=== PATIENT | female | born 2000 | race Caucasian/White ===

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

== ENCOUNTER → 2018-05-14 16:40 | Outpatient (CLI) | payer MEDICAID, SELFPAY ==
[2018-05-14 14:02] VITALS: BMI 19.1
[2018-05-14 17:55] LABS: International Normalized Ratio 1.1; Prothrombin Time (Protime)PT. 13.9 SECONDS (11.7-14.9)
[2018-05-14 17:56] LABS: Partial Thromboplast Time 30.3 Seconds (24.1-36.2)
[2018-05-14 18:11] LABS: AST(SGOT) 34 U/L (15-37); Alanine Aminotransfer ALT/SGPT 56 U/L (13-56); Albumin, Serum 4.2 g/dL (3.2-5.0); Alkaline Phosphatase 160 U/L (45-117); Anion Gap 8 (5-15); BUN 11 mg/dL (7-18); BUN/Creat Ratio 14.2 RATIO (10-20); Calcium,Total 8.8 mg/dL (8.5-10.1); Chloride 105 mmol/L (98-107); Creatinine, Serum 0.78 mg/dL (0.55-1.02); EST Glomerular Filtration Rate 101 mL/min (>60); Est Glom Filt Rate - Afr Amer 122 mL/min (>60); Globulin 4.1 g/dL (2.2-4.2); Glucose 92 mg/dL (74-106); Potassium 3.6 mmol/L (3.5-5.1); Protein, Total 8.3 g/dL (6.4-8.2); Sodium Level 137 mmol/L (136-145)
[2018-05-14 18:15] LABS: Absolute Neutrophil Count 5.4 X10^3/uL (2.0-7.7); Basophil# 0.03 X10^3/uL; Basophil% 0.4 % (0-1); Eosinophil# 0.08 X10^3/uL; Hematocrit 40.3 % (37-47); Hemoglobin 13.3 g/dl (12.0-15.0); Lymphocyte % 25.4 % (19-41); Mean Corpuscular Hgb 26.6 pg (27.0-32.0); Mean Corpuscular Volume 80.6 fL (81-99); Monocyte# 0.35 X10^3/uL; Monocyte% 4.4 % (0-10); Neutrophil % 68.5 % (47-70); RBC Distribution Width CV 13.9 % (11.6-14.6); RBC Distribution Width SD 40.5 fl (35.1-43.9); White Blood Count 7.9 K/mm3 (4.4-11.0)
[2018-05-14 18:17] LABS: Differential Indicated SCAN CRITERIA MET; POSITIVE COUNT YES; POSITIVE DIFFERENTIAL NO; POSITIVE MORPHOLOGY YES
[2018-05-14 19:21] LABS: Platelet Estimate MKD DEC (ADEQ); Red Cell Morphology NORM C+C NORMAL (NORM C&C)
[2018-05-14 19:41] LABS: Platelet Count 14 K/mm3 (150-450)
[2018-05-14 19:42] LABS: Anisocytosis RARE
[2018-05-16 08:47] LABS: Pathologist Review Reviewed
== END ==
PROVIDERS: Family Provider Internal Medicine; PCP Internal Medicine; Referring Provider Internal Medicine; Visit Provider Internal Medicine
DX: R23.8 Other skin changes (principal)
CPT/HCPCS: 36415; 80053; 85025; 85610; 85730

== ENCOUNTER 2019-05-27 02:00 | Inpatient (IN) | payer MEDICAID, SELFPAY ==
[2018-08-06 11:36] VITALS: BMI 20.5
[2019-05-27] VITALS (20 sets, daily range): BP systolic 94–112; BP diastolic 50–77; PULSE 63–100; RESP 16–18; TEMP 36.3–39.2; O2SAT 100; BMI 23.7
[2019-05-27] MEDS: Lactated Ringers 1,000 ML 50 ML IV (02:10)
[2019-05-27] MEDS: Lactated Ringers 500 ML 999 ML IV (02:11)
[2019-05-27] MEDS: Oxytocin 30 units/NS 500 ml 30 UNITS/500 ML IV.SOLN 334 UNITS IV (02:54)
[2019-05-27 02:58] LABS: Absolute Lymphocyte Count 1.73 X10^3/uL (0.83-4.51); Absolute Neutrophil Count 7.8 X10^3/uL (2.0-7.7); Basophil# 0.02 X10^3/uL; Basophil% 0.2 % (0-1); Differential Indicated SCAN CRITERIA MET; Eosinophil# 0.03 X10^3/uL; Eosinophils% 0.3 % (0-5); Hemoglobin 11.8 g/dL (12.0-15.0); Lymphocyte # 1.73 X10^3/ul (4.0); Mean Corp Hgb Conc 32.8 g/dL (32-36); Mean Corpuscular Hgb 27.8 pg (27.0-32.0); Mean Corpuscular Volume 84.9 fL (81-99); Mean Platelet Vol. 10.9 fl (6.2-12.0); Monocyte# 0.57 X10^3/uL; Monocyte% 5.6 % (0-10); NRBC Flagged by Analyzer 0 % (0-5); Neutrophil # 7.77 X10^3/uL (2.7-7.7); Neutrophil % 76.3 % (47-70); POSITIVE COUNT YES; POSITIVE MORPHOLOGY YES; Platelet Count 96 K/mm3 (150-450); RBC Distribution Width CV 21.5 % (11.6-14.6); RBC Distribution Width SD 63.9 fl (35.1-43.9); Red Blood Count 4.24 M/mm3 (4.2-5.4); White Blood Count 10.2 K/mm3 (4.4-11.0)
--- NOTE | 2019-05-27 03:09 | PCM.HP.OB ---
- Problem List (1) 38 weeks gestation of Status: Acute (2) Multiparous Status: Acute (3) Short interval between pregnancies affecting , antepartum Status: Acute (4) History of depression Status: Acute (5) Gestational thrombocytopenia Status: Acute (6) Iron deficiency anemia Status: Acute History Date of Admission: 05/27/19 Final ABRAHAM: 06/05/19 Gestational age: 38 Weeks and 5 Days History of this : This is a 18 year-old, G 3, P 2, at 38 weeks gestational age who presented from home with contractions. Medical History: Medical History (Last Updated 05/27/19 @ 03:[address] Komal Melgar, DO) Depression (Chronic) F32.9 Enlarged thyroid E04.9 Frequent headaches R51 History of anemia Z86.2 Allergies No Known Allergies Allergy (Verified 08/06/18 11:37) Home Medications: Home Medications citalopram 20 mg tablet 20 mg PO DAILY #30 tab 02/05/18 Smoking Status: Never smoker Number of Fetus(es): 1 NST - FHR Rate Baby A FHR Category:: Category I History Past Pregnancies: Past Pregnancies Delivery Date Name GA/ Weeks Outcome Route Wt Sex Labor Length Anesthesia Delivery Location Provider FOB Labs: See [facility] records Expected Infant Delivery Method: Spontaneous Vaginal Review of Systems Gynecological: Reports: - - +Ctx. No vb, lof Physical Exam General: Alert, No apparent distress HEENT: Atraumatic Abdomen: Soft, Non Tender Neurological: Neuro grossly intact RETENTION SPECIALIST: Normal external genitalia Estimated gestational size: Appropriate for gestational size Presentation: Cephalic Assessment/Plan All Active Problems (Last Reviewed 08/06/18 @ 11:38 by Ayla Mclain) 38 weeks gestation of (Acute) Multiparous (Acute) Short interval between pregnancies affecting , antepartum (Acute) History of depression (Acute) Gestational thrombocytopenia (Acute) Iron deficiency anemia (Acute) Anemia in preg-unspec (Resolved) History of prior with IUGR (Resolved) Placental abnormality (Resolved) (Resolved) Short interval between pregnancies affecting , antepartum (Resolved) Supervision of high-risk (Resolved) Threatened labor (Resolved) Unspecified contraceptive management (Resolved) This is a 18 year-old, at 38 wk gestation admitted with contractions. She was 5-6 cm on admission with ctx's that palpated mild. Within less than 1 hour she was then 7-8 cm dilated, followed by a precipitous delivery. - GBS negative - Routine care
--- NOTE | 2019-05-27 03:16 | PCM.OPRPT ---
Problem List (1) 38 weeks gestation of Status: Acute (2) Multiparous Status: Acute (3) Short interval between pregnancies affecting , antepartum Status: Acute (4) History of depression Status: Acute (5) Gestational thrombocytopenia Status: Acute (6) Iron deficiency anemia Status: Acute Report of Operation Date of Procedure: 05/27/19 Pre-Operative Diagnosis: 38 week gestation, multiparous patient, active labor Post-Operative Diagnosis: As above Surgery/Procedure Performed:: Description of Surgical Findings:: Viable female in vertex presentation. Clear fluid. Normal and intact appearing placenta with a three-vessel cord. Type of Anesthesia:: Local Special Medications: None Specimen's removed: Placenta Drains: None Estimated Blood Loss (mL): 150 Description of Procedure: Patient presented to labor and delivery with contractions. She was noted to be 5-6 cm dilated with mild contractions on palpation on admission. In less than an hour she was 7-8 cm dilated, followed by a precipitous delivery. I was notified when the patient was 7-8 cm dilated, and presented to the hospital in 15 minutes and at that time the infant had already delivered by RN. Upon entering room was on maternal abdomen, and cord was clamped and cut after delayed cord clamping. A second-degree perineal laceration was noted and 1% lidocaine with epi was injected. The placenta then delivered spontaneously and was noted to be intact and normal-appearing with a three-vessel cord. Fundus was firm and bleeding was hemostatic. Second-degree perineal laceration was repaired in usual fashion. Instrument counts and sponge counts were correct. A vaginal sweep was performed. Grafts/Implants Used: None - Complications None - Admit VTE Documentation VTE Present on Admission: No Vaginal Delivery Maternal Presentation: Active Labor Amniotic Membrane Rupture Type: Spontaneous Amniotic Fluid Description: Clear Surgery/ Procedure Performed: Spontaneous Vaginal Delivery Type of Anesthesia: Local with 1% lidocaine Presentation: Vertex Placental Delivery Description: Spontaneous Cord Vessel Description: 3 Vessels Infant A gender: Female (1 minute): 9 (5 minute): 10 Episiotomy Description: None Laceration: 2nd degree Medications given after delivery: IV Pitocin Complications: None
[2019-05-27 03:31] LABS: Differential Comment SCANNED
[2019-05-27 03:32] LABS: Platelet Estimate MOD DEC (ADEQ)
[2019-05-27] MEDS: Ibuprofen 600 MG Tablet PO (05:19)
[2019-05-27] MEDS: 0.9% Saline Lock 10 ML Syringe IV (05:20)
[2019-05-28 00:35] VITALS: BP 96/47; PULSE 71; RESP 16; TEMP 36.4; O2SAT 99
[2019-05-28 03:50] VITALS: BP 86/49; PULSE 70; RESP 18; TEMP 36.9; O2SAT 99
[2019-05-28 08:10] VITALS: BP 94/53; PULSE 70; RESP 16; TEMP 37.1; O2SAT 100
--- NOTE | 2019-05-28 08:27 | PCM.PN.OB ---
Patient Problems: Active and Suspected Problems (Last Updated 05/27/19 @ 03:[address] Koaml Melgar, DO) 38 weeks gestation of (Acute) Multiparous (Acute) Short interval between pregnancies affecting , antepartum (Acute) History of depression (Acute) Gestational thrombocytopenia (Acute) Iron deficiency anemia (Acute) Subjective: Doing well per patient and nursing staff. Ambulating and taking PO without difficulty. Voiding and passing flatus. Pain controlled. . Denies any chest pain, shortness of breath, leg pain, increased vaginal bleeding or clots. Planning D/C home today. - Physical Exam Vitals/I&O's: Vital Signs Temp Pulse Resp BP Pulse Ox 98.8 F 70 16 94/53 L 100 05/28/19 08:10 05/28/19 08:10 05/28/19 08:10 05/28/19 08:10 05/28/19 08:10 Oxygen Delivery Method Room Air Weight: 134 lb Body Mass Index (BMI) 23.7 Intake and Output for Last 24 Hours 05/26/19 05/27/19 05/28/19 23:59 23:59 23:59 Intake Total 1001.66 / 1001.66 Output Total 500 / 500 Balance 501.66 / 501.66 General: Alert, Oriented x3, Cooperative HEENT: Atraumatic, Normocephalic Neck: Trachea Midline Lungs: Clear to auscultation, Normal air movement, No rhonchi, No wheeze Cardiovascular: Regular rate, Regular Rhythm, No murmurs Abdomen: Bowel Sounds Present, Soft - Fundus firm 3 below U Extremities: No edema - Lissett's negative biltaterally Psych/Mental Status: Normal Affect, Appropriate Current Medications Acetaminophen (Tylenol) 1,000 mg PO Q8H PRN PRN PRN Reason: Pain Score 1-3/10 Bisacodyl (Dulcolax) 10 mg RECTAL UD PRN PRN Reason: If no BM Citalopram Hydrobromide (Celexa) 20 mg PO DAILY LUIS Dibucaine (Dibucaine) 1 applic TOPICAL TID PRN PRN; Protocol PRN Reason: Discomfort Hydrocortisone (Hytone) 1 applic TOPICAL TID PRN PRN; Protocol PRN Reason: Discomfort Ibuprofen (Motrin) 600 mg PO Q6H PRN PRN PRN Reason: Pain Score 1-3/10 Last Admin: 05/27/19 05:19 Dose: 600 mg Documented by: Levothyroxine Sodium (Synthroid) 50 mcg PO DAILY@0600 LUIS Methylergonovine Maleate (Methergine) 0.2 mg IM X1 PRN PRN Reason: Excess bleeding/uterine atony Ondansetron HCl (Zofran) 4 mg IV Q4H PRN PRN PRN Reason: Nausea Senna/Docusate Sodium (Senokot-S, Maggie-Colace) 1 - 2 tablet PO DAILY PRN PRN PRN Reason: Constipation Simethicone (Mylicon) 80 mg PO PCHS PRN PRN Reason: Indigestion/Stomach pain Sodium Chloride () 5 - 15 ml IV UD PRN PRN Reason: SALINE FLUSH Last Admin: 05/27/19 05:20 Dose: 10 ml Documented by: Medical Necessity - Tobacco Use Smoking Status: Never smoker Assessment/Plan All Active Problems (Last Updated 05/27/19 @ 03:[address] Komal Melgar, DO) 38 weeks gestation of (Acute) Multiparous (Acute) Short interval between pregnancies affecting , antepartum (Acute) History of depression (Acute) Gestational thrombocytopenia (Acute) Iron deficiency anemia (Acute) Anemia in preg-unspec (Resolved) History of prior with IUGR (Resolved) Placental abnormality (Resolved) (Resolved) Short interval between pregnancies affecting , antepartum (Resolved) Supervision of high-risk (Resolved) Threatened labor (Resolved) Unspecified contraceptive management (Resolved) A:PPD#1 Thrombocytopenia P: 1) Routine care 2) History of thrombocytopenia. PLT 92, repeat CBC today and at visit. 3) Patient with enlarged thyroid, took levothyroxine during . Is supposed to stop after delivery and will follow up with in one month. 4) Follow up in 6 weeks for visit. 5) Discharge home
--- NOTE | 2019-05-28 08:46 | DCINST_ITS ---
Discharge Diet: No Restrictions Discharge Activity: Return to Normal Activity, May Drive, May Shower, May Take a Tub Bath May resume sexual activity in: 4-6 weeks Weight Bearing Status: Full weight bearing Additional Activity Instructions:: Nothing in the vagina for 4-6 weeks. You may return to work/school in 6 weeks. Call your doctor if your incision/area has: Continuous Slow Oozing, Sudden Increased Bleeding, Increased Pain/ Swelling, Increased Redness, Foul Smelling Discharge Call your doctor if you observe: Fever of 101 or Higher, Change in Color, Inability to urinate, Inability to have a bowel movement, Using more than one pad per hour, Shortness of breath, Chest pain, Increased palpitations (irregular heartbeat), Calf discomfort, Uncontrolled pain Additional Instructions: If you experience any of the following, contact your healthcare provider. * Bleeding that soaks a pad every hour for 2 hours * Fever 100.4 or higher * Unrelieved incision or abdominal pain * Swelling, redness, discharge or bleeding from your incision or episiotomy site * Your incision begins to separate * Problems urinating (including inability to urinate or burning while u rinating). * Visual changes * Severe headache * Flu-like symptoms * Pain or redness in one of both of your breasts * Pain, warmth, tenderness or swelling in your legs, especially the calf area * Frequent nausea and vomiting * Symptoms of depression or anxiety If you experience any of the following, call 911 or go to the nearest Emergency Room. * Chest pain * Problems breathing * Seizure activity * Partial or complete paralysis of a body part, slurred speech, weakness or drooping of the face, or a sudden inability to walk or hold your balance Allergies/Adverse Reactions: Allergies No Known Allergies Allergy (Verified 05/27/19 04:27) Medications to take at Discharge Citalopram [Celexa] 20 mg PO DAILY 05/27/19 Please Follow Up With: Komal Melgar DO When: Call to make an appointment with your doctor in 6 weeks. Primary Care Physician: Eda Ziegler MD [Primary Care Provider] - Test Results: Test results from this visit will be discussed in further detail at your follow- up appointment, if applicable.
[2019-05-28 09:53] LABS: Absolute Lymphocyte Count 2.57 X10^3/uL (0.83-4.51); Absolute Neutrophil Count 4.4 X10^3/uL (2.0-7.7); Basophil# 0.04 X10^3/uL; Basophil% 0.5 % (0-1); Eosinophil# 0.13 X10^3/uL; Eosinophils% 1.7 % (0-5); Hematocrit 37.2 % (37-47); Lymphocyte # 2.57 X10^3/ul (4.0); Lymphocyte % 34.3 % (19-41); Mean Corp Hgb Conc 32.3 g/dL (32-36); Mean Corpuscular Volume 86.7 fL (81-99); Mean Platelet Vol. 10.9 fl (6.2-12.0); Monocyte# 0.32 X10^3/uL; Monocyte% 4.3 % (0-10); NRBC Flagged by Analyzer 0 % (0-5); Neutrophil # 4.38 X10^3/uL (2.7-7.7); Neutrophil % 58.5 % (47-70); POSITIVE MORPHOLOGY YES; Platelet Count 130 K/mm3 (150-450); RBC Distribution Width CV 21.8 % (11.6-14.6); RBC Distribution Width SD 66.2 fl (35.1-43.9); Red Blood Count 4.29 M/mm3 (4.2-5.4); White Blood Count 7.5 K/mm3 (4.4-11.0)
[2019-05-28 09:59] LABS: Differential Indicated SCAN CRITERIA MET
[2019-05-28 11:42] LABS: Anisocytosis 1+; Platelet Estimate SLT DEC (ADEQ); Red Cell Morphology N CHROM NORMAL (NORM C&C)
[2019-05-28 13:14] VITALS: BP 105/69; PULSE 63; TEMP 37.2; O2SAT 99
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
== END 2019-05-28 13:45 | disposition home or self-care (01) | DRG 560 ==
LOC: WPOUT 02:05 → WP 02:05
PROVIDERS: Advanced Practice Midwife; Admitting Provider Obstetrics & Gynecology; PCP Internal Medicine; Visit Provider Obstetrics & Gynecology
DX: O99.284 Endocrine, nutritional and metabolic diseases complicating childbirth (principal); O62.3 Precipitate labor; Z37.0 Single live birth; O70.1 Second degree perineal laceration during delivery; Z3A.38 38 weeks gestation of pregnancy; E04.9 Nontoxic goiter, unspecified; O99.344 Other mental disorders complicating childbirth; F32.9 Major depressive disorder, single episode, unspecified
CPT/HCPCS: 59025; 59050; 85025; 86850; 86900; 86901; 99218; J7120; A4216; G0378

== ENCOUNTER 2020-11-16 20:01 | Emergency (ER) | payer MEDICAID, SELFPAY ==
[2020-11-16 20:02] VITALS: BP 114/77; PULSE 76; RESP 15; TEMP 36.8; O2SAT 100; BMI 18.6
[2020-11-16 21:33] LABS: Absolute Lymphocyte Count 2.42 X10^3/uL (0.83-4.51); Basophil# 0.06 X10^3/uL; Eosinophil# 0.07 X10^3/uL; Eosinophils% 1.2 % (0-5); Hemoglobin 13.5 g/dL (12.0-15.0); Lymphocyte # 2.42 X10^3/ul (0.83-4.51); Lymphocyte % 41.8 % (19-41); Mean Corp Hgb Conc 32.9 g/dL (32-36); Mean Corpuscular Hgb 29.7 pg (27.0-32.0); Mean Corpuscular Volume 90.3 fL (81-99); Mean Platelet Vol. 10.7 fl (6.2-12.0); Monocyte# 0.26 X10^3/uL; Monocyte% 4.5 % (0-10); NRBC Flagged by Analyzer 0 % (0-5); Neutrophil # 2.97 X10^3/uL (2.7-7.7); Neutrophil % 51.3 % (47-70); Platelet Count 203 K/mm3 (150-450); RBC Distribution Width SD 39.8 fl (35.1-43.9); Red Blood Count 4.54 M/mm3 (4.2-5.4); White Blood Count 5.8 K/mm3 (4.4-11.0)
--- NOTE | 2020-11-16 21:37 | CM.ED ---
SW Note Referral Source: Case Find Referral Reason: No Primary Care Physician (PCP) SW reviewed chart and noted that patient has no PCP. SW provided patient with list of [facility] and [facility] Physician List for reference. SW also provided patient with handout ?Where to go When?. No other issues or concerns voiced at this time. SW remains available for any additional needs. Plan: Provided patient with PCP information Allyson UNDERWOOD
[2020-11-16] MEDS: 0.9% Normal Saline 1,000 ML 1000 ML IV (21:40)
[2020-11-16 21:42] LABS: Internal QC Validated? YES +Cl - CLEAR BKGD; Pregnancy, Serum, hCG Quali. NEGATIVE Negative
[2020-11-16 21:46] LABS: ALB/GLOB Ratio 1.2 RATIO (0.9-2.4); AST(SGOT) 15 U/L (15-37); Alanine Aminotransfer ALT/SGPT 21 U/L (13-56); Albumin, Serum 4.5 g/dL (3.2-5.0); Alkaline Phosphatase 90 U/L (45-117); Anion Gap 3 (5-15); BUN 11 mg/dL (7-18); BUN/Creat Ratio 17.9 RATIO (10-20); Calcium,Total 9.3 mg/dL (8.5-10.1); Chloride 106 mmol/L (98-107); Creatinine, Serum 0.61 mg/dL (0.55-1.02); EST Glomerular Filtration Rate 129 mL/min (>60); Est Glom Filt Rate - Afr Amer 156 mL/min (>60); Estimated Creatinine Clearance 108.77 ml/min; Globulin 3.7 g/dL (2.2-4.2); Glucose 77 mg/dL (74-106); Potassium 3.9 mmol/L (3.5-5.1); Protein, Total 8.2 g/dL (6.4-8.2); Sodium Level 138 mmol/L (136-145)
[2020-11-16 21:48] LABS: Bacteria 0 SEEN /hpf (None Seen); Mucous, Urine 0 SEEN /hpf (<or=2+); Red Blood Cells-Urine 0 SEEN /hpf (0-5); White Blood Cells 0 SEEN /hpf (0-5)
[2020-11-16 21:49] LABS: Color, Urine Straw (Yellow); Glucose, Dipstick Normal (Normal); Ketone-Dipstick Negative (Negative); Leukocyte Esterase-Dipstick Negative /ul (Negative); Nitrite-Dipstick Negative (Negative); Occult Blood-Urine Negative /ul (Negative); Protein-Dipstick Negative (Negative); Specific Gravity, Urine 1.005 (1.002-1.030); Urine Bilirubin Dipstick Negative (Negative); Urine Clarity Clear (Clear); Urine Urobilinogen Normal (Normal)
[2020-11-16 22:06] LABS: Squamous Epithelial Cells - UA 0-5 SEEN /hpf (5-10)
--- NOTE | 2020-11-16 23:35 | EX.ED.DYSGE1 ---
HPI History of Present Illness Chief Complaint: Abd Pain Informant: patient Onset/Context/Timing Onset: Today Context: Sudden Onset Timing: Waxes and wanes Quality: Sharp Location: Lower abdomen and pelvis Worsened by: Working Relieved by: Nothing Narrative Narrative: Patient presents with pelvic pain that began today. Patient states it has been waxing and waning. Patient describes her pain as sharp. Patient states her pain is over her lower abdomen and radiates into her back. Patient admits to some spotting. Patient states it was worse when she was at work. Patient admits to nausea but denies any vomiting. Patient admits to some urinary frequency. Patient denies any fevers or chills. [facility] Medical History Depression Enlarged thyroid Frequent headaches History of anemia Home Medications NK 11/16/20 [History Last Taken Unknown] Allergy/AdvReac Type Severity Reaction Status Date / Time No Known Allergies Allergy Verified 11/16/20 20:03 Family History Grandfather Myocardial infarction, Onset Age: 57 Cancer Grandmother Breast cancer no surgical history Social History adopted: No household members: family housing: house number of children: 1 current occupational status: unemployed current occupational exposures/hazards: No pets and animals: No history of recent travel: Yes out of state: Yes Smoking Status: Never smoker second hand exposure: No alcohol intake: never substance use type: does not use what type of physical activity do you participate in: aerobics frequency: 1-2 times per week seatbelt use: always do you feel safe at home: Yes additional social history: Austyn Jackson- computer programming manager at [employer] ED Constitutional Constitutional ED: Denies chills or fever(s) Eyes Eyes: Denies blurry vision or change in vision ENT ENT ED: Denies rhinorrhea or sore throat Cardiovascular Cardiovascular: Denies chest pain or palpitations Respiratory/Chest Respiratory/Chest: Denies cough or dyspnea Gastrointestinal Gastrointestinal: Reports abdominal pain and nausea; Denies vomiting Genitourinary Genitourinary ED: Reports urinary frequency; Denies dysuria or hematuria Musculoskeletal Musculoskeletal: Reports back pain; Denies neck pain Integumentary Denies abscess or rash Neurologic Neurologic: Denies headache(s) or weakness Allergic/Immunologic Allergic/Immunologic ED: Denies mouth swelling or urticaria EXAM Physical Exam Const Vital Signs: 11/16/20 20:02 Temperature 98.2 F Temperature Source Temporal Pulse Rate 76 Respiratory Rate 15 Blood Pressure 114/77 Blood Pressure Mean 89 Pulse Ox 100 Oxygen Delivery Method Room Air Positive well nourished and well developed General Appearance ED: well developed HEENT Reports moist mucous membranes Neck supple and no JVD Resp normal respiratory effort and clear to auscultation bilaterally Cardio regular rate and regular rhythm GI normal to inspection, nondistended, normoactive bowel sounds and non-tender Palpation: soft Back/Spine no CVA tenderness Neuro oriented x3, CN's II-XII intact bilaterally and no sensory deficits noted Sensorium / Orientation: alert Motor Exam: strength 5/5 throughout Psych mental status grossly normal MDM MDM MDM Narrative Medical decision making narrative: Patient was given IV fluids. CBC and comprehensive metabolic profile were within normal limits. Urinalysis does not show any evidence of urinary tract infection. Serum hCG was negative. Patient was sleeping on reevaluation. Patient is feeling better. Patient was instructed to take Tylenol or ibuprofen as needed for pain. Patient was instructed to follow-up with her primary care physician in 5 to 7 days. Patient was also referred to NON EMERGENCY SERVICES [facility] for follow-up care as needed. Patient understood and was agreeable with the plan. All questions were answered. Lab Data Attestation: I reviewed the patient's lab results. Labs: Laboratory Results - last 24 hr 11/16/20 11/16/20 11/16/20 20:07 20:13 20:13 WBC 5.8 RBC 4.54 Hgb 13.5 Hct 41.0 MCV 90.3 MCH 29.7 MCHC 32.9 RDW Std Deviation 39.8 RDW Coeff of Trish 12.0 Plt Count 203 MPV 10.7 Immature Gran % (Auto) 0.200 Neut % (Auto) 51.3 Lymph % (Auto) 41.8 H Centre % (Auto) 4.5 Eos % (Auto) 1.2 Baso % (Auto) 1.0 Absolute Neuts (auto) 3.0 Absolute Lymphs (auto) 2.42 Nucleated RBC % 0 Sodium 138 Potassium 3.9 Chloride 106 Carbon Dioxide 29.0 Anion Gap 3 L BUN 11 Creatinine 0.61 Estim Creat Clear Calc 108.77 Est GFR (MDRD) Af Amer 156 Est GFR (MDRD) Non-Af 129 BUN/Creatinine Ratio 17.9 Glucose 77 Calcium 9.3 Total Bilirubin 0.40 AST 15 ALT 21 Alkaline Phosphatase 90 Total Protein 8.2 Albumin 4.5 Globulin 3.7 Albumin/Globulin Ratio 1.2 Serum , Qual Urine Color Straw Urine Clarity Clear Urine pH 7.0 Ur Specific [place] 1.005 Urine Protein Negative Urine Glucose (UA) Normal Urine Ketones Negative Urine Occult Blood Negative Urine Nitrite Negative Urine Bilirubin Negative Urine Urobilinogen Normal Ur Leukocyte Esterase Negative Urine RBC 0 SEEN Urine WBC 0 SEEN Ur Squamous Epith Cells 0-5 SEEN Urine Bacteria 0 SEEN Urine Mucus 0 SEEN 11/16/20 20:13 WBC RBC Hgb Hct MCV MCH MCHC RDW Std Deviation RDW Coeff of Trish Plt Count MPV Immature Gran % (Auto) Neut % (Auto) Lymph % (Auto) Centre % (Auto) Eos % (Auto) Baso % (Auto) Absolute Neuts (auto) Absolute Lymphs (auto) Nucleated RBC % Sodium Potassium Chloride Carbon Dioxide Anion Gap BUN Creatinine Estim Creat Clear Calc Est GFR (MDRD) Af Amer Est GFR (MDRD) Non-Af BUN/Creatinine Ratio Glucose Calcium Total Bilirubin AST ALT Alkaline Phosphatase Total Protein Albumin Globulin Albumin/Globulin Ratio Serum , Qual NEGATIVE Urine Color Urine Clarity Urine pH Ur Specific [place] Urine Protein Urine Glucose (UA) Urine Ketones Urine Occult Blood Urine Nitrite Urine Bilirubin Urine Urobilinogen Ur Leukocyte Esterase Urine RBC Urine WBC Ur Squamous Epith Cells Urine Bacteria Urine Mucus Discharge Plan Triage Chief Complaint: Abd Pain ED Provider: Breezy Echavarria Dx/Rx/DC Orders Clinical Impression: Pelvic pain in female Instructions: ED Pelvic Pain, Unknown Cause Prescriptions: No Action NK RF: 0 Primary Care Provider: Care Physician,No Primary Referrals: Ashley Hleler MD [STAFF PHYSICIAN] - 5-7 Days Caitlyn Sanchez MD [STAFF PHYSICIAN] - 5-7 Days Care Physician,No Primary [Primary Care Provider] - Disposition Disposition: Home, Self Care Discharge Date/Time: 11/16/20 23:58
[2020-11-16 23:58] VITALS: PULSE 93; RESP 16; O2SAT 98
== END 2020-11-16 23:58 | disposition home or self-care (01) ==
PROVIDERS: Emergency Provider Emergency Medicine
DX: R10.2 Pelvic and perineal pain (principal); R11.0 Nausea; R35.0 Frequency of micturition
CPT/HCPCS: 80053; 81001; 84703; 85025; 96360; 99282; J7030

== ENCOUNTER → 2020-11-25 | Outpatient (CLI) | payer MEDICAID, SELFPAY ==
[2020-11-27 03:07] LABS: Chlamydia By Nucleic Acid AMP Negative (Negative)
[2020-11-27 14:27] LABS: Gonococcus By Nucleic Acid AMP Negative (Negative)
[2020-12-03 17:00] LABS: HPV Reflexed? NOT INDICATED
== END | disposition home or self-care (01) ==
LOC: LABSPEC 11:32
PROVIDERS: Referring Provider Nurse Practitioner Women's Health; Visit Provider Nurse Practitioner Women's Health
DX: N76.0 Acute vaginitis (principal); Z12.4 Encounter for screening for malignant neoplasm of cervix; Z11.3 Encounter for screening for infections with a predominantly sexual mode of transmission
CPT/HCPCS: 87070; 87205; 87491; 87591; 88175; G0145

== ENCOUNTER → 2020-11-29 08:05 | Outpatient (CLI) | payer MEDICAID, SELFPAY ==
--- NOTE | 2020-11-29 08:08 | US_ITS ---
STUDY: ULTRASOUND OF THE FEMALE PELVIS - COMPLETE REASON FOR EXAM: Female, 20 years old. 3 month history of right pelvic pain. LMP: 10/23/2020. TECHNIQUE: Transabdominal and Transvaginal TECHNICAL QUALITY: Adequate. COMPARISON: None. FINDINGS: The uterus is anteverted and is in a midline position. The uterus measures 8.7 cm x 6.5 cm x 4.1 cm. There is a Nabothian cyst of the cervix. The endometrium measures 6 mm in thickness, and is . There is no demonstrated endometrial mass. There is no demonstrated myometrial mass. I.U.D. - The patient does not have an I.U.D. The right ovary is visualized. The right ovary measures 3.5 cm x 2.8 cm x 2.3 cm. There is no right ovarian cyst or ovarian mass. There is no visualized right adnexal mass or complex lesion. There is normal arterial and normal venous vascularity. The left ovary is visualized. The left ovary measures 2.7 cm x 2.5 cm x 1.3 cm. There is no left ovarian cyst or ovarian mass. There is no visualized left adnexal mass or complex lesion. There is normal arterial and normal venous vascularity. There is no fluid in the cul-de-sac. The pre void volume of the bladder was 16 ml. US/Transvaginal Non- IMPRESSION: Normal female pelvis. Electronically Signed: Patrice Valencia MD at 12:47 EDT , Service support ,
--- NOTE | 2020-11-29 08:08 | US_ITS ---
STUDY: ULTRASOUND OF THE FEMALE PELVIS - COMPLETE REASON FOR EXAM: Female, 20 years old. 3 month history of right pelvic pain. LMP: 10/23/2020. TECHNIQUE: Transabdominal and Transvaginal TECHNICAL QUALITY: Adequate. COMPARISON: None. FINDINGS: The uterus is anteverted and is in a midline position. The uterus measures 8.7 cm x 6.5 cm x 4.1 cm. There is a Nabothian cyst of the cervix. The endometrium measures 6 mm in thickness, and is . There is no demonstrated endometrial mass. There is no demonstrated myometrial mass. I.U.D. - The patient does not have an I.U.D. The right ovary is visualized. The right ovary measures 3.5 cm x 2.8 cm x 2.3 cm. There is no right ovarian cyst or ovarian mass. There is no visualized right adnexal mass or complex lesion. There is normal arterial and normal venous vascularity. The left ovary is visualized. The left ovary measures 2.7 cm x 2.5 cm x 1.3 cm. There is no left ovarian cyst or ovarian mass. There is no visualized left adnexal mass or complex lesion. There is normal arterial and normal venous vascularity. There is no fluid in the cul-de-sac. The pre void volume of the bladder was 16 ml. US/Pelvic (Non ) IMPRESSION: Normal female pelvis. Electronically Signed: Patrice Valencia MD at 12:47 EDT , Service support ,
== END ==
PROVIDERS: Referring Provider Nurse Practitioner Women's Health; Visit Provider Nurse Practitioner Women's Health
DX: R10.2 Pelvic and perineal pain (principal)
CPT/HCPCS: 76830; 76856; 93976

== ENCOUNTER → 2021-07-14 | Outpatient (CLI) | payer MEDICAID, SELFPAY ==
[2021-07-14 15:52] LABS: Absolute Neutrophil Count 3.6 X10^3/uL (2.0-7.7); Basophil# 0.03 X10^3/uL; Basophil% 0.5 % (0-1); Eosinophil# 0.07 X10^3/uL; Eosinophils% 1.1 % (0-5); Hematocrit 39.2 % (37-47); Lymphocyte % 36.7 % (19-41); Mean Corp Hgb Conc 33.2 g/dL (32-36); Mean Corpuscular Hgb 29.7 pg (27.0-32.0); Mean Corpuscular Volume 89.5 fL (81-99); Mean Platelet Vol. 10.8 fl (6.2-12.0); Monocyte# 0.29 X10^3/uL; Monocyte% 4.6 % (0-10); NRBC Flagged by Analyzer 0 % (0-5); Neutrophil # 3.56 X10^3/uL (2.7-7.7); Neutrophil % 56.9 % (47-70); Platelet Count 202 K/mm3 (150-450); RBC Distribution Width SD 39.3 fl (35.1-43.9); Red Blood Count 4.38 M/mm3 (4.2-5.4); White Blood Count 6.3 K/mm3 (4.4-11.0)
[2021-07-14 16:05] LABS: Erythrocyte Sedimentation Rate 2 mm/hr (0-30)
[2021-07-14 16:21] LABS: CRP < 2.90 mg/L (0.0-3.0)
[2021-07-18 15:10] LABS: Anti-Centromere B Ab <0.2 AI (0.0-0.9); Anti-Chromatin <0.2 AI (0.0-0.9); Anti-Jo <0.2 AI (0.0-0.9); Anti-Scleroderma-70 AB <0.2 AI (0.0-0.9); RNP Ab 0.4 AI (0.0-0.9); SJOGREN'S Anti-SS-A test < 0.2 AI (0.0-0.9); SJOGREN'S Anti-SS-B test < 0.2 AI (0.0-0.9); Smith Ab <0.2 AI (0.0-0.9)
[2021-07-18 16:04] LABS: Anti-dsDNA Ab 3 IU/mL (0-9)
[2021-07-23 18:07] LABS: Cytoplasmic Ab (C-ANCA) <1:20 titer (Neg:<1:20); Endomysial Antibody IgA Negative (Negative); Immunoglobulin A 213 mg/dL (87-352); Immunoglobulin E 9 IU/mL (6-495); Immunoglobulin G 979 mg/dL (586-1602)
[2021-07-25 12:22] LABS: EBV Acute VCA IgM < 36.0 U/mL (0.0-35.9); EBV-VCA IgG > 600.0 U/mL (0.0-17.9); Immunoglobulin M 130 mg/dL (26-217)
[2021-07-25 12:23] LABS: Perinuclear Ab (P-ANCA) <1:20 titer (Neg:<1:20); t-Transglutaminase IgA <2 U/mL (0-3)
== END | disposition home or self-care (01) ==
PROVIDERS: PCP Nurse Practitioner Primary Care; Referring Provider Internal Medicine Gastroenterology; Visit Provider Internal Medicine Gastroenterology
DX: R11.0 Nausea (principal); R19.7 Diarrhea, unspecified
CPT/HCPCS: 36415; 82784; 82785; 83516; 85025; 85652; 86140; 86225; 86235; 86255; 86256; 86664; 86665

== ENCOUNTER → 2021-07-19 | Outpatient (CLI) | payer MEDICAID, SELFPAY ==
[2021-07-23 10:37] LABS: Calprotectin, Stool <16 ug/g (0-120); Fats, Neutral Normal (.); Fats, Total Normal (.)
== END | disposition home or self-care (01) ==
PROVIDERS: PCP Nurse Practitioner Primary Care; Visit Provider Internal Medicine Gastroenterology
DX: R11.0 Nausea (principal); R19.7 Diarrhea, unspecified
CPT/HCPCS: 82705; 83630; 83993; 87493

== ENCOUNTER → 2021-07-29 | Outpatient (CLI) | payer MEDICAID, SELFPAY ==
--- NOTE | 2021-07-29 10:02 | NEURO_ITS ---
NCS and/or EMG Patient Report Ordering Doctor: Cindy Tang DATE OF SERVICE: 07/29/21 Indication: Bilateral wrist pain as well as tingling and numbness of digits 1-4 on both sides. Evaluate for median nerve entrapment. Findings: Nerve conduction studies were performed in the right and left upper extremities. The right median motor study recording the abductor pollicis brevis showed a normal amplitude, normal distal latency and normal conduction velocity. The right ulnar motor study recording the abductor digiti minimi showed a normal amplitude, normal distal latency and normal conduction velocity. No conduction block or focal slowing was present across the elbow. The right median sensory response recording digit two showed a normal amplitude, latency and conduction velocity. The right ulnar sensory response recording digit five showed a normal amplitude, latency and conduction velocity. The right radial sensory response recording over the extensor snuff box showed a normal amplitude, latency and conduction velocity. The left median motor study recording the abductor pollicis brevis showed a no rmal amplitude, normal distal latency and normal conduction velocity. The left ulnar motor study recording the abductor digiti minimi showed a normal amplitude, normal distal latency and normal conduction velocity. No conduction block or focal slowing was present across the elbow. The left median sensory response recording digit two showed a normal amplitude, latency and conduction velocity. The left ulnar sensory response recording digit five showed a normal amplitude, latency and conduction velocity. The left radial sensory response recording over the extensor snuff box showed a normal amp litude, latency and conduction velocity. Right median-ulnar sensory latencies to the ring finger showed a normal median latency compared to the ulnar. Needle EMG of the right upper extremity and cervical paraspinal muscles was performed. No denervation was seen in any muscle. All motor unit morphology, activation and recruitment patterns were normal. Needle EMG of the left upper extremity and cervical paraspinal muscles was omitted given the symmetry of symptoms and paucity of findings on the right. Impression: This is a normal study. There is no electrophysiologic evidence of median neuro michael across the wrist on either side. In addition, there is no electrophysiologic evidence of cervical radiculopathy, brachial plexopathy or other entrapment neuropathy in the right upper extremity. Please note: electrodiagnostic testing is appropriately 95% sensitive in detecting median neuropathy across the wrist when internal comparison studies are done, as was performed in this case. However, 5% of patients will have a false negative study. Presumably, in these patients, intermittent compression results in pain and paresthesias from ischemia, but without any fixed demyelination or axonal loss that can be demonstrated on electrodiagnostic studies. Thus, clinical correlation is required in the interpretation of this negative study. Ayush Morgan D.O. Multi Select Codes Neurology Neurology Interp Codes: 26767-97 [facility] [place] test done w/n test comp (interp) and 63203-87 [facility] test 11-12 studies (interp)
== END | disposition home or self-care (01) ==
LOC: PSN 08:32
PROVIDERS: PCP Nurse Practitioner Primary Care; Referring Provider Physician Assistant Surgical; Visit Provider Physician Assistant Surgical
DX: R20.2 Paresthesia of skin (principal)
CPT/HCPCS: 95912; 95886; 95911

== ENCOUNTER 2021-09-12 17:45 | Emergency (ER) | payer MEDICAID, SELFPAY ==
[2021-09-12 17:46] VITALS: BP 117/86; PULSE 101; RESP 16; TEMP 36.8; O2SAT 100; BMI 18.5
--- NOTE | 2021-09-12 18:24 | EX.ED.DYSGE1 ---
HPI History of Present Illness Chief Complaint: Dizziness Informant: patient Onset/Context/Timing Current Severity: Moderate Maximum Severity: Moderate Narrative Narrative: Patient present secondary to chest heaviness that started today and dizziness that started yesterday. She is been on her menstrual cycle for the last 4 weeks and bleeding heavily. She has been seen by [facility] [employer] and was started on norethindrone. She states in spite of starting this on the she has had no change in her bleeding. She started to feel dizzy yesterday and today has had some chest heaviness. She does feel that her heart is racing. She states her normal menstrual cycle is fairly light and last for 5 days. [facility] Medical History Abdominal pain Depression Diarrhea Enlarged thyroid Frequent headaches Mauricio's disease History of anemia Nausea Home Medications norethindrone (contraceptive) 0.35 mg tablet (Vianney) 0.35 mg PO QDAY #84 tabs 11/25/20 [Rx Last Taken Unknown] ondansetron 4 mg disintegrating tablet 4 mg PO Q8H 06/10/21 [History Last Taken Unknown] Allergy/AdvReac Type Severity Reaction Status Date / Time No Known Allergies Allergy Verified 09/12/21 17:49 Family History Grandfather Myocardial infarction, Onset Age: 57 Cancer Grandmother Breast cancer Social History adopted: No household members: family housing: house number of children: 3 current occupational status: unemployed current occupational exposures/hazards: No pets and animals: No history of recent travel: Yes out of state: Yes Smoking Status: Never smoker second hand exposure: No alcohol intake: never substance use type: does not use what type of physical activity do you participate in: aerobics frequency: 1-2 times per week seatbelt use: always do you feel safe at home: Yes additional social history: - Manuel SORTO [facility] ED Constitutional Constitutional ED: Denies chills or fever(s) Eyes Eyes: Denies change in vision or discharge from eye(s) ENT ENT ED: Denies discharge from eye(s), rhinorrhea or sore throat Cardiovascular Cardiovascular: Reports chest pain and racing heartbeat; Denies palpitations Respiratory/Chest Respiratory/Chest: Denies cough or dyspnea Gastrointestinal Gastrointestinal: Reports abdominal pain; Denies diarrhea, nausea or vomiting Genitourinary Genitourinary ED: Denies difficulty urinating or dysuria Musculoskeletal Musculoskeletal: Denies back pain or extremity pain Integumentary Denies Abrasions or rash Neurologic Neurologic: Reports weakness; Denies headache(s) Allergic/Immunologic Allergic/Immunologic ED: Denies lip swelling or urticaria EXAM Physical Exam Const Vital Signs: 09/12/21 17:46 09/12/21 18:07 Temperature 98.2 F Temperature Source Temporal Pulse Rate 101 H Respiratory Rate 16 Respiratory Effort Short of Breath Respiratory Pattern Normal Blood Pressure 117/86 H Blood Pressure Mean 96 Pulse Ox 100 Oxygen Delivery Method Room Air Positive well nourished and well developed General Appearance ED: well developed HEENT Reports normocephalic and head/scalp atraumatic Eyes PERRL and EOMs intact bilaterally Neck supple Chest Wall inspection of chest normal and palpation of chest normal Resp normal respiratory effort and clear to auscultation bilaterally Cardio regular rate and regular rhythm GI normal to inspection, nondistended, normoactive bowel sounds and non-tender Palpation: soft Back/Spine no CVA tenderness Extremity normal to inspection Neuro oriented x3 and no sensory deficits noted Sensorium / Orientation: alert Motor Exam: strength 5/5 throughout Psych mental status grossly normal Skin no rashes or lesions noted MDM MDM MDM Narrative Medical decision making narrative: Patient given a liter IV fluids. Lab work obtained. EKG ordered. Lab Data Attestation: I reviewed the patient's lab results. Labs: Laboratory Results - last 24 hr 09/12/21 09/12/21 09/12/21 18:30 18:30 18:30 WBC 8.3 RBC 4.34 Hgb 13.2 Hct 38.7 MCV 89.2 MCH 30.4 MCHC 34.1 RDW Std Deviation 41.8 RDW Coeff of Trish 12.7 Plt Count 199 MPV 10.7 Immature Gran % (Auto) 0.400 Neut % (Auto) 73.1 H Lymph % (Auto) 22.1 Boundary % (Auto) 3.5 Eos % (Auto) 0.5 Baso % (Auto) 0.4 Absolute Neuts (auto) 6.0 Absolute Lymphs (auto) 1.82 Nucleated RBC % 0 Sodium 138 Potassium 3.7 Chloride 107 Carbon Dioxide 25.0 Anion Gap 6 BUN 9 Creatinine 0.78 Estim Creat Clear Calc 83.94 Est GFR (MDRD) Af Amer 119 Est GFR (MDRD) Non-Af 98 BUN/Creatinine Ratio 11.6 Glucose 85 Calcium 9.1 Serum , Qual NEGATIVE EKG Initial EKG: Attestation: I personally reviewed and interpreted this EKG as follows: Interpretation: Sinus Rhythm (Sinus at 75 with no acute ischemia.) Treatment and Re-Evaluation Narrative: On repeat evaluation patient resting comfortably. Heart rate is in the mid 60s. Lab work was reviewed with her and unremarkable. Hemoglobin is 13.2. I spoke with Jailyn George, on-call for [facility] [employer]. She asked that the patient take 10 mg of norethindrone tonight. She needs to take 5 mg 3 times a day tomorrow. Patient is to call the office tomorrow morning so she can be and further review of her chart will be done to determine next steps for work-up. Patient be discharged home in stable condition at this time. Discharge Plan Triage Chief Complaint: Dizziness Other Complaint: Chest Pain ED Provider: Rosa Yates Dx/Rx/DC Orders Clinical Impression: Menorrhagia, Dizziness Instructions: ED Heavy Menstrual Bleeding Prescriptions: No Action norethindrone (contraceptive) [Vianney] 0.35 mg tablet 0.35 mg PO QDAY Qty: 84 4RF Rx Instructions: start day 1 of menstrual cycle ondansetron 4 mg tablet,disintegrating 4 mg PO Q8H Primary Care Provider: Bev Castro NP Referrals: Bev Castro NP, CHILDCARE DIRECTOR-C [Primary Care Provider] - Activity Restrictions/Additional Instructions: Please take 10 mg of norethindrone tonight. Take 5 mg 3 times tomorrow. Please call the [facility] [employer] office tomorrow morning. They want to schedule you for an ultrasound and do further review of your chart to determine neck step in work-up. Disposition Disposition: Home, Self Care
--- NOTE | 2021-09-12 18:25 | EKG12_ITS ---
Test Reason : DYSRHYTHMIA Blood Pressure : / mmHG Vent. Rate : 075 BPM Atrial Rate : 075 BPM P-R Int : 160 ms QRS Dur : 076 ms QT Int : 370 ms P-R-T Axes : 062 051 070 degrees QTc Int : 413 ms Normal sinus rhythm Normal ECG Confirmed by ELIZABETH NIETO, LIANNE ([id number]), production editor DAT MARQUEZ ([id number]) on 09/14/2021 8:49:18 AM Referred By: RAMON Confirmed By:LIANNE JOHNSON MD
[2021-09-12] MEDS: 0.9% Normal Saline 1,000 ML 1000 ML IV (18:35)
[2021-09-12] MEDS: Ketorolac 15 MG/ML Vial IV (18:35)
[2021-09-12 19:00] LABS: Internal QC Validated? YES +Cl - CLEAR BKGD; Pregnancy, Serum, hCG Quali. NEGATIVE Negative
[2021-09-12 19:05] LABS: Absolute Lymphocyte Count 1.82 X10^3/uL (0.83-4.51); Anion Gap 6 (5-15); BUN 9 mg/dL (7-18); BUN/Creat Ratio 11.6 RATIO (10-20); Basophil# 0.03 X10^3/uL; Basophil% 0.4 % (0-1); Calcium,Total 9.1 mg/dL (8.5-10.1); Chloride 107 mmol/L (98-107); Creatinine, Serum 0.78 mg/dL (0.55-1.02); EST Glomerular Filtration Rate 98 mL/min (>60); Eosinophil# 0.04 X10^3/uL; Eosinophils% 0.5 % (0-5); Est Glom Filt Rate - Afr Amer 119 mL/min (>60); Estimated Creatinine Clearance 83.94 ml/min; Glucose 85 mg/dL (74-106); Hematocrit 38.7 % (37-47); Hemoglobin 13.2 g/dL (12.0-15.0); Lymphocyte # 1.82 X10^3/ul (0.83-4.51); Lymphocyte % 22.1 % (19-41); Mean Corp Hgb Conc 34.1 g/dL (32-36); Mean Corpuscular Hgb 30.4 pg (27.0-32.0); Mean Corpuscular Volume 89.2 fL (81-99); Mean Platelet Vol. 10.7 fl (6.2-12.0); Monocyte# 0.29 X10^3/uL; Monocyte% 3.5 % (0-10); NRBC Flagged by Analyzer 0 % (0-5); Neutrophil # 6.04 X10^3/uL (2.7-7.7); Neutrophil % 73.1 % (47-70); Platelet Count 199 K/mm3 (150-450); Potassium 3.7 mmol/L (3.5-5.1); RBC Distribution Width CV 12.7 % (11.6-14.6); RBC Distribution Width SD 41.8 fl (35.1-43.9); Red Blood Count 4.34 M/mm3 (4.2-5.4); Sodium Level 138 mmol/L (136-145); White Blood Count 8.3 K/mm3 (4.4-11.0)
[2021-09-12] MEDS: 0.9% Normal Saline 1,000 ML 150 ML IV (19:58)
== END 2021-09-12 20:17 | disposition home or self-care (01) ==
PROVIDERS: Emergency Provider Emergency Medicine; PCP Nurse Practitioner Primary Care; Visit Provider Emergency Medicine
DX: R42 Dizziness and giddiness (principal); R07.89 Other chest pain; N92.0 Excessive and frequent menstruation with regular cycle; Z79.3 Long term (current) use of hormonal contraceptives
CPT/HCPCS: 80048; 84703; 85025; 93005; 96361; 96374; 99285; J7030

== ENCOUNTER 2022-05-04 10:38 | Day surgery (SDC) | payer MEDICAID, SELFPAY ==
[2022-04-28 16:41] LABS: Absolute Lymphocyte Count 2.75 X10^3/uL (0.83-4.51); Absolute Neutrophil Count 4.3 X10^3/uL (2.0-7.7); Basophil# 0.04 X10^3/uL; Basophil% 0.5 % (0-1); Eosinophil# 0.09 X10^3/uL; Eosinophils% 1.2 % (0-5); Hemoglobin 12.6 g/dL (12.0-15.0); Lymphocyte # 2.75 X10^3/ul (0.83-4.51); Lymphocyte % 36.5 % (19-41); Mean Corp Hgb Conc 33.2 g/dL (32-36); Mean Corpuscular Volume 87.4 fL (81-99); Monocyte# 0.36 X10^3/uL; Monocyte% 4.8 % (0-10); NRBC Flagged by Analyzer 0 % (0-5); Neutrophil # 4.28 X10^3/uL (2.7-7.7); Neutrophil % 56.7 % (47-70); Platelet Count 199 K/mm3 (150-450); RBC Distribution Width CV 12.3 % (11.6-14.6); RBC Distribution Width SD 39.8 fl (35.1-43.9); Red Blood Count 4.35 M/mm3 (4.2-5.4); White Blood Count 7.5 K/mm3 (4.4-11.0)
[2022-05-04 11:21] LABS: Internal QC Validated? YES +Cl - CLEAR BKGD; Pregnancy, Urine Negative Negative
[2022-05-04 11:38] VITALS: BP 96/66; PULSE 68; RESP 18; TEMP 36.7; O2SAT 98; BMI 19.3
[2022-05-04] MEDS: Lactated Ringers 1,000 ML 15 ML IV (11:46)
[2022-05-04] MEDS: Cefazolin 2 GM in 0.9% Normal Saline 100 ML IV (13:34)
[2022-05-04] MEDS: Bupiv/Epi 0.25% 30 ML Vial (13:51)
[2022-05-04 14:16] VITALS: BP 96/66; BP 97/54; PULSE 65; RESP 16; TEMP 36.1; O2SAT 100
--- NOTE | 2022-05-04 14:21 | PCM.OPRPT ---
Report of Operation Date of Procedure: 05/04/22 Description of Surgical Findings:: Preoperative diagnosis: Bilateral carpal Tunnel Syndrome Postoperative diagnosis: Bilateral carpal Tunnel Syndrome Procedure: Bilateral endoscopic Carpal Tunnel Release Surgeon: Costa Mcmahon DO Anesthesia: General with LMA Buffing Machine Tender: Jordi Laguerre CRNA Complications: None apparent Drains: None Estimated blood loss: 5 cc Urinary output: None measured IV fluids: Per anesthesia record Specimens: None Surgical implants: None Surgical indications: This is a 21-year-old female seen in the outpatient setting diagnosed with bilateral carpal tunnel syndrome. The patient failed nonoperative management in the form of bracing, anti-inflammatory medications, carpal tunnel corticosteroid injections, and activity modification. Operative intervention in form of endoscopic possible open carpal tunnel release was offered to bilateral hands. The risks, benefits, alternatives to procedure were reviewed with patient at length in the outpatient setting and he agreed to proceed. Risks included but were not limited to bleeding, infection, loss of life or limb, risk of anesthesia, incomplete release, neurovascular injury, persistent pain, need for additional surgery, stiffness, loss of hand function. Patient expressed understanding wish to proceed with surgery. Informed consent obtained in the office. Description of procedure: Patient was seen in preoperative holding area. Patient was identified by name, medical record number, date of . The operative extremities were marked with a surgical marker. We confirmed informed consent with the patient and all questions were answered to the patient's satisfaction. At time of her procedure, patient was brought to the operative suite and positioned supine a standard operating table. All bony prominences were well-padded. General anesthesia was induced and endotracheal tube placed. Bilateral upper extremities were then prepped for surgery by first applying a well-padded pneumatic tourniquet to the upper arms. We spun the bed approximately 45 degrees. 2 g Ancef was administered prior to incision by anesthesia staff. We performed a timeout at this point confirming side, site, and operation to be performed. No concerns voiced and elected to proceed. I began surgery on the right side, as this was the more symptomatic side. I first marked a transverse incision on the ulnar aspect of the palmaris longus tendon in the proximal wrist crease approximately 1-1/2 cm in length. Skin was sharply incised with 15 blade scalpel. Superficial veins were cauterized with bipolar cautery. The fatty layer was dissected through bluntly until the antebrachial fascia was encountered. The antebrachial fascia were split in line with the fibers as well as the incision with the Littler scissors. I then placed a skin hook around the antebrachial fascia distally. I open the proximal 1 cm longitudinally of the antebrachial fascia. I then sequentially dilated within the carpal tunnel utilizing Arthrex supplied dilators. I then utilized there synovial elevator to debride the undersurface of the transverse carpal ligament free from synovium. I then removed the elevator and inserted the centerline endoscopic carpal tunnel release system. The transverse carpal ligament was well visualized and free from underlying synovium. I identified its distal aspect by blotting the skin and perivascular fat was visualized. I then carefully deployed the scalpel from the sheath and, in retrograde fashion, sequentially released the transverse carpal ligament longitudinally. No aberrancies of the median nerve were apparent. Complete release was confirmed with Littler scissors acting as a probe. The tourniquet was then deflated. Hemostasis was excellent. A field block was administered with 10 cc 0.5% plain Marcaine. Skin was closed with interrupted horizontal mattress sutures of 4-0 nylon suture. Sterile compression dressing was then applied. I then turned my attention to the left side. marked a transverse incision on the ulnar aspect of the palmaris longus tendon in the proximal wrist crease approximately 1-1/2 cm in length. Skin was sharply incised with 15 blade scalpel. Superficial veins were cauterized with bipolar cautery. The fatty layer was dissected through bluntly until the antebrachial fascia was encountered. The antebrachial fascia were split in line with the fibers as well as the incision with the Littler scissors. I then placed a skin hook around the antebrachial fascia distally. I open the proximal 1 cm longitudinally of the antebrachial fascia. I then sequentially dilated within the carpal tunnel utilizing Arthrex supplied dilators. I then utilized there synovial elevator to debride the undersurface of the transverse carpal ligament free from synovium. I then removed the elevator and inserted the centerline endoscopic carpal tunnel release system. The transverse carpal ligament was well visualized and free from underlying synovium. I identified its distal aspect by blotting the skin and perivascular fat was visualized. I then carefully deployed the scalpel from the sheath and, in retrograde fashion, sequentially released the transverse carpal ligament longitudinally. No aberrancies of the median nerve were apparent. Complete release was confirmed with Littler scissors acting as a probe. The tourniquet was then deflated. Hemostasis was excellent. A field block was administered with 10 cc 0.5% plain Marcaine. Skin was closed with interrupted horizontal mattress sutures of 4-0 nylon suture. Sterile compression dressing was then applied. Patient tolerated procedure well without apparent complication.she was safely extubated in the operative suite. She was transferred to PACU in stable condition. Intraoperative medications: Post Operative Plan: Weightbearing: Weightbearing as tolerated bilateral upper extremities Antibiotics: Ancef 2 g x 1 dose preoperatively DVT Prophylaxis: None indicated Riley: None Dressing: Okay to remove on postoperative day #2, shower. Apply Band-Aid X-Rays: None Pain Medication: Prescription for Bardolph provided today Follow-up: 2 weeks post-operatively with me in the office
--- NOTE | 2022-05-04 14:24 | DCINST_ITS ---
Discharge Instructions Follow Up Care Test Results: Test results from this visit will be discussed in further detail at your follow- up appointment, if applicable. Discharge Plan Admission Primary Reason for Your Visit: Bilateral carpal tunnel release Attending Provider: Costa Mcmahon Primary Care Provider: Bev Castro NP Discharge Orders/Prescriptions Prescriptions: New hydrocodone-acetaminophen 5-325 mg tablet 1 tab PO Q6H PRN (Reason: pain) 5 Days Qty: 20 0RF Referrals / Follow Up: Bev Castro NP, DIAGNOSTIC TECHNOLOGIST-C [Primary Care Provider] - Disposition Disposition (needs filled in before D/C Order can be placed): Home, Self Care
[2022-05-04 14:30] VITALS: BP 92/58; BP 96/66; PULSE 80; RESP 16; O2SAT 100
[2022-05-04 14:45] VITALS: BP 110/69; BP 96/66; PULSE 80; RESP 16; O2SAT 97
[2022-05-04 15:00] VITALS: BP 100/63; BP 96/66; PULSE 64; RESP 16; TEMP 36.9; O2SAT 95
== END 2022-05-04 15:56 | disposition home or self-care (01) ==
LOC: SDC 10:39 → AC 10:40
PROVIDERS: Anesthesiology; PCP Nurse Practitioner Primary Care; Referring Provider Student in an Organized Health Care Education/Training Program; Visit Provider Student in an Organized Health Care Education/Training Program
PROC: (CPT 29848; principal; 2022-05-04 12:15)
DX: G56.03 Carpal tunnel syndrome, bilateral upper limbs (principal); R63.6 Underweight; R03.0 Elevated blood-pressure reading, without diagnosis of hypertension; Z68.1 Body mass index [BMI] 19.9 or less, adult
CPT/HCPCS: 29848; 01810; 36415; 81025; 85025; J7120; J2405

== ENCOUNTER 2023-08-28 09:56 | Emergency (ER) | payer BC, SELFPAY ==
[2023-08-28 09:57] VITALS: BP 110/84; PULSE 79; RESP 16; TEMP 36.4; O2SAT 100; BMI 19.8
--- NOTE | 2023-08-28 10:12 | ED.VIS.FEGU ---
HPI HPI - Female History of Present Illness Chief Complaint: Female C/O PFSH PFSH Medical History (Updated 08/28/23 @ 13:[address] Thanh Farfan, DO) Anxiety Depression Wears contact lenses Depression Anxiety Anemia Easy bruising Excessive bleeding Restless legs Migraine headache Non-smoker Nausea Diarrhea Mauricio's disease Enlarged thyroid Depression Home Medications ?Medication ?Instructions ?Recorded ?Last Taken ?Type NK 08/28/23 Unknown History Allergy/AdvReac Type Severity Reaction Status Date / Time No Known Allergies Allergy Verified 08/28/23 09:57 Family History Grandfather Myocardial infarction, Onset Age: 57 Cancer Grandmother Breast cancer Social History adopted: No household members: family housing: house number of children: 3 current occupational status: unemployed current occupational exposures/hazards: No pets and animals: No history of recent travel: Yes out of state: Yes Smoking Status: Never smoker second hand exposure: No alcohol intake: never substance use type: does not use what type of physical activity do you participate in: aerobics frequency: 1-2 times per week seatbelt use: always do you feel safe at home: Yes additional social history: - Manuel EXAM Physical Exam Const Vital Signs: 08/28/23 09:57 08/28/23 11:57 08/28/23 13:09 Temperature 97.5 F L 97.2 F L Temperature Source Temporal Pulse Rate 79 53 L 56 L Respiratory Rate 16 18 18 Blood Pressure 110/84 H 101/62 106/56 L Blood Pressure Mean 92 75 72 Pulse Ox 100 99 99 Oxygen Delivery Method Room Air Room Air MDM MDM MDM Narrative Medical decision making narrative: HISTORY OF PRESENT ILLNESS: 22-year-old female presents with concern for lower pelvic pain. Notes she has history of a cyst she feels like it may have ruptured. Notes right lower pelvic pain. Last bowel was yesterday. She is sexually active 1 partner. Has not examined STDs. She denies vaginal bleeding or discharge. Denies any diarrhea or constipation. Denies any frequency urgency or dysuria. No history abdominal surgeries. Denies history of ovarian manipulation, fertility treatments or history of ectopic . REVIEW OF SYSTEMS: Pertinent positives: Abdominal pain Pertinent negatives: Vaginal bleeding, vomiting, fever, difficulty urinating PHYSICAL EXAM: Nursing triage notes reviewed, Vital signs reviewed Constitutional: please see mdm HENT: MMM Eyes: Pupils equal round and reactive to light, Extraocular muscles intact Neck: No stridor, no JVD, full neck ROM Lungs: Clear to auscultation, No wheezing or rales. No increased work of breathing, no conversational dyspnea, no accessory muscle use, no nasal flaring. No respiratory distress noted Heart: Regular rate and rhythm, No murmurs, No rubs and No gallops, 2+ distal pulses (radial, femoral, posterior tibial) in all extremities Abdomen: Soft, there is no tenderness, rigidity, rebound or guarding, no obvious peritoneal signs, no palpable pulsatile abdominal masses, no auscultated abdominal bruit : No CVAT Extremities: No edema Neuro: No focal neurological deficits, cranial nerves II through XII intact, 5/5 strength in all extremities. Intact sensation to light touch in all extremities, 2+ reflexes bilateral patella tendons. Normal gait. No ataxia. Skin: No rash or lesions noted MEDICAL DECISION MAKING: Chief Complaint: Abdominal pain External records reviewed: Imaging reviewed: Abdominal ultrasound from 2021 the right upper quadrant shows no evidence of gallstones or gallbladder abnormality Factors affecting care: pelvic pain large ovary, Social determinants of health: sexually active 1 partner [facility] Narrative: Patient was hemodynamically stable, afebrile and nontoxic-appearing. Exam with right adnexal tenderness, no pain at McBurney's point. No rebound or guarding. No peritoneal signs I considered the following differential diagnosis: Ovarian pathology, ovarian torsion, ovarian cyst, tubo-ovarian abscess, appendicitis, UTI, nephrolithiasis, pyelonephritis I obtained a broad lab and imaging workup to further elucidate etiology of his complaints I treat the patient IV fluid, Tylenol, Toradol and Zofran. ALL IMAGES (IF OBTAINED) HAVE BEEN PERSONALLY REVIEWED AND INTERPRETED BY MYSELF. Pelvic ultrasound showed no evidence ovarian torsion, ovarian cyst, tubo-ovarian abscess Urine without evidence of infection there is mild inflammation CBC with no leukocytosis, noted mild anemia, no thrombocytopenia Serum test is negative Urinalysis shows no evidence of urinary inflammation suggestive of UTI The synthesis of the patient's history, physical exam, labs images suggest no acute life-limiting etiology. Although I considered appendicitis as potential diagnoses p there is no indication for advanced imaging at this time and she had no peritoneal signs, no tenderness at McBurney's point or over the appendix, no elevated white blood cell count, no fever or anorexia. Symptoms remain unclear at this time she is appropriate for outpatient follow-up and strict return precautions for further evaluation if symptoms worsen. Tylenol ibuprofen instructions given. The patient and/or family, caregivers express understanding. The patient and/or family, caregivers agrees with the plan. Shared decision making: I will have a discussion with the patient and or visitors regarding risk/benefits of further testing or admission. They will be made aware of of the risk/benefits inherent in this decision they will be given the opportunity to voice understanding. Total critical care time today provided was at least 0 minutes. This excludes separately billable procedures. Critical care time (if documented) is secondary to the patient having high probability of clinically significant/life threatening deterioration in the patient's condition which required my urgent intervention. Impression: 1. Pelvic pain 2. Right adnexal tenderness 3. Anemia Dispo: Discharge This note was generated with OLED-T dictation software. It may contain incorrect words, spelling, and punctuation that were not noted in review of the chart prior to signing. Lab Data Labs: Laboratory Results - last 24 hr 08/28/23 08/28/23 10:40 11:40 WBC 6.7 RBC 4.03 L Hgb 11.4 L Hct 35.2 L MCV 87.3 MCH 28.3 MCHC 32.4 RDW Std Deviation 40.2 RDW Coeff of Trish 12.6 Plt Count 322 MPV 10.1 Immature Gran % (Auto) 0.300 Neut % (Auto) 67.4 Lymph % (Auto) 25.6 [place] % (Auto) 4.8 Eos % (Auto) 1.2 Baso % (Auto) 0.7 Absolute Neuts (auto) 4.5 Absolute Lymphs (auto) 1.71 Nucleated RBC % 0 HCG, Quant < 1 Urine Color Yellow Urine Clarity Clear Urine pH 7.0 Ur Specific [place] 1.005 Urine Protein Negative Urine Glucose (UA) Normal Urine Ketones Negative Urine Occult Blood Negative Urine Nitrite Negative Urine Bilirubin Negative Urine Urobilinogen Normal Ur Leukocyte Esterase 25 H Urine RBC 0 SEEN Urine WBC 0-5 SEEN Ur Squamous Epith Cells 0-5 SEEN Urine Bacteria 0 SEEN Urine Mucus 0 SEEN Blood Type B POSITIVE Radiography Diagnostic Testing: Clinical Impression(s) from Imaging Studies Pelvis Ultrasound 08/28/23 10:28 IMPRESSION: Small amount of free fluid is seen in the cul-de-sac. Electronically Signed: Patrice Valencia MD at 12:15 EDT , Discharge Plan Triage Chief Complaint: Female C/O ED Provider: Thanh Farfan Dx/Rx/DC Orders Clinical Impression: Pelvic pain Instructions: ED Pelvic Pain, Unknown Cause Prescriptions: No Action NK Primary Care Provider: Bev Castro NP Referrals: Bev Castro NP, VICE PRESIDENT OF RECRUITING-[employer] [Primary Care Provider] - Activity Restrictions/Additional Instructions: Thank you for trusting us with your care today! Please take Tylenol (2 pills, 650 mg), ibuprofen (2 pills, 400 mg) every 6 hours as needed for pain and fever control. Please return to the emergency department if your symptoms change or worsen. Please follow with your primary care physician for further outpatient evaluation and management. Print Language: Portuguese Disposition Disposition: Home, Self Care Discharge Date/Time: 08/28/23 13:31
--- NOTE | 2023-08-28 10:28 | US_ITS ---
STUDY: ULTRASOUND OF THE FEMALE PELVIS - COMPLETE REASON FOR EXAM: Female, 22 years old. Right sided pelvic pain LMP: August 09, 2023. TECHNIQUE: Transvaginal TECHNICAL QUALITY: Adequate. COMPARISON: None. FINDINGS: The uterus is anteverted and is in a midline position. The uterus measures 9.4 cm x 6.2 cm x 5.3 cm. There is a Nabothian cyst of the cervix. The endometrium measures 5 mm in thickness, and is hyperechoic. There is no demonstrated endometrial mass. There is no demonstrated myometrial mass. I.U.D. - The patient does not have an I.U.D. The right ovary is visualized. The right ovary measures 3.1 cm x 3.4 cm x 2.8 cm. There is no right ovarian cyst or ovarian mass. There is no visualized right adnexal mass or complex lesion. There is normal arterial and normal venous vascularity. The left ovary is visualized. The left ovary measures 3.5 cm x 2.4 cm x 2.2 cm. There is no left ovarian cyst or ovarian mass. There is no visualized left adnexal mass or complex lesion. There is normal arterial and normal venous vascularity. There is a small amount of fluid in the cul-de-sac. US/Pelvic (Non ) IMPRESSION: Small amount of free fluid is seen in the cul-de-sac. Electronically Signed: Patrice Valencia MD at 12:15 EDT ,
[2023-08-28] MEDS: Acetaminophen 325 MG Tablet 650 MG PO (10:53)
[2023-08-28] MEDS: Ondansetron 4 MG/2 ML Vial IV (10:54)
[2023-08-28] MEDS: 0.9% Normal Saline (1000mL) 1,000 ML 999 ML IV (10:54)
[2023-08-28 10:58] LABS: Absolute Lymphocyte Count 1.71 X10^3/uL (0.83-4.51); Absolute Neutrophil Count 4.5 X10^3/uL (2.0-7.7); Basophil# 0.05 X10^3/uL; Basophil% 0.7 % (0-1); Eosinophil# 0.08 X10^3/uL; Eosinophils% 1.2 % (0-5); Hematocrit 35.2 % (37-47); Hemoglobin 11.4 g/dL (12.0-15.0); Lymphocyte # 1.71 X10^3/ul (0.83-4.51); Lymphocyte % 25.6 % (19-41); Mean Corp Hgb Conc 32.4 g/dL (32-36); Mean Corpuscular Hgb 28.3 pg (27.0-32.0); Mean Corpuscular Volume 87.3 fL (81-99); Mean Platelet Vol. 10.1 fl (6.2-12.0); Monocyte# 0.32 X10^3/uL; Monocyte% 4.8 % (0-10); NRBC Flagged by Analyzer 0 % (0-5); Neutrophil % 67.4 % (47-70); Platelet Count 322 K/mm3 (150-450); RBC Distribution Width CV 12.6 % (11.6-14.6); RBC Distribution Width SD 40.2 fl (35.1-43.9); Red Blood Count 4.03 M/mm3 (4.2-5.4); White Blood Count 6.7 K/mm3 (4.4-11.0)
[2023-08-28 11:13] LABS: hCG Titer Quant., Serum < 1 mIU/mL (1-3)
[2023-08-28 11:54] LABS: Bacteria 0 SEEN /hpf (None Seen); Mucous, Urine 0 SEEN /hpf (<or=2+); Red Blood Cells-Urine 0 SEEN /hpf (0-5)
[2023-08-28 11:57] VITALS: BP 101/62; PULSE 53; RESP 18; O2SAT 99
[2023-08-28 12:01] LABS: Color, Urine Yellow (Yellow); Glucose, Dipstick Normal (Normal); Ketone-Dipstick Negative (Negative); Leukocyte Esterase-Dipstick 25 /ul (Negative); Nitrite-Dipstick Negative (Negative); Occult Blood-Urine Negative /ul (Negative); Protein-Dipstick Negative (Negative); Specific Gravity, Urine 1.005 (1.002-1.030); Urine Bilirubin Dipstick Negative (Negative); Urine Clarity Clear (Clear); Urine Urobilinogen Normal (Normal)
[2023-08-28 12:18] LABS: Squamous Epithelial Cells - UA 0-5 SEEN /hpf (5-10); White Blood Cells 0-5 SEEN /hpf (0-5)
[2023-08-28 13:09] VITALS: BP 106/56; PULSE 56; RESP 18; TEMP 36.2; O2SAT 99
== END 2023-08-28 13:31 | disposition home or self-care (01) ==
PROVIDERS: Emergency Provider Emergency Medicine; PCP Nurse Practitioner Primary Care; Visit Provider Emergency Medicine
DX: R10.2 Pelvic and perineal pain (principal); D64.9 Anemia, unspecified
CPT/HCPCS: 76856; 81001; 84702; 85025; 86900; 86901; 96361; 96374; 99283; J7030; A4216; J2405

== ENCOUNTER 2024-06-07 05:40 | Inpatient (IN) | payer MEDICAID, SELFPAY ==
[2024-06-07] VITALS (36 sets, daily range): BP systolic 92–115; BP diastolic 52–73; PULSE 35–112; RESP 16; TEMP 36.2–37.3; O2SAT 93–100; BMI 24.6
[2024-06-07] MEDS: Lactated Ringers 1,000 ML 50 ML IV (06:00)
[2024-06-07 06:22] LABS: Absolute Lymphocyte Count 2.17 X10^3/uL (0.83-4.51); Absolute Neutrophil Count 9.4 X10^3/uL (2.0-7.7); Basophil# 0.04 X10^3/uL; Basophil% 0.3 % (0-1); Eosinophil# 0.07 X10^3/uL; Eosinophils% 0.6 % (0-5); Hematocrit 33.4 % (37-47); Hemoglobin 11.2 g/dL (12.0-15.0); Lymphocyte # 2.17 X10^3/ul (0.83-4.51); Lymphocyte % 17.6 % (19-41); Mean Corp Hgb Conc 33.5 g/dL (32-36); Mean Corpuscular Hgb 26.7 pg (27.0-32.0); Mean Corpuscular Volume 79.7 fL (81-99); Mean Platelet Vol. 11.8 fl (6.2-12.0); Monocyte# 0.56 X10^3/uL; Monocyte% 4.5 % (0-10); NRBC Flagged by Analyzer 0 % (0-5); Neutrophil % 76.4 % (47-70); Platelet Count 234 K/mm3 (150-450); RBC Distribution Width CV 15.5 % (11.6-14.6); RBC Distribution Width SD 44.7 fl (35.1-43.9); Red Blood Count 4.19 M/mm3 (4.2-5.4); White Blood Count 12.3 K/mm3 (4.4-11.0)
[2024-06-07 07:06] LABS: Syphilis Antibodies Nonreactive (Nonreactive)
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
--- NOTE | 2024-06-07 09:10 | PCM.PN.OB ---
Subjective Subjective AROM for clear fluid. 4/70/-2 soft anterior Objective Data Objective Data Vital Signs: Vital Signs Temp Pulse Resp BP Pulse Ox 98.0 F 80 16 107/59 L 98 06/07/24 08:43 06/07/24 08:43 06/07/24 08:43 06/07/24 08:43 06/07/24 08:43 Weight: 65.136 kg Body Mass Index (BMI) 24.6 Lab / Micro Data 06/07/24 06:00 Labs: Laboratory Results - last 24 hr 06/07/24 06:00: WBC 12.3 H, RBC 4.19 L, Hgb 11.2 L, Hct 33.4 L, MCV 79.7 L, MCH 26.7 L, MCHC 33.5, RDW Std Deviation 44.7 H, RDW Coeff of Trish 15.5 H, Plt Count 234, MPV 11.8, Immature Gran % (Auto) 0.600, Neut % (Auto) 76.4 H, Lymph % (Auto) 17.6 L, [place] % (Auto) 4.5, Eos % (Auto) 0.6, Baso % (Auto) 0.3, Absolute Neuts (auto) 9.4 H, Absolute Lymphs (auto) 2.17, Nucleated RBC % 0, Syphilis Total Ab Nonreactive, Blood Type B POSITIVE, Antibody Screen NEGATIVE NST FHR Rate Baby A NST Reactive:: Yes FHR Category:: Category I Assessment & Plan (1) 39 weeks gestation of : (2) Normal labor:
[2024-06-07] MEDS: Oxytocin 15 Units/NS 250ml 15 UNITS/250 ML IV.SOLN 83 UNITS IV (10:53)
[2024-06-07] MEDS: Oxytocin 10 UNITS/ML Vial IM (10:53)
--- NOTE | 2024-06-07 11:03 | OB.VAGDELI_ITS ---
Assessment & Plan (1) (spontaneous vaginal delivery): Maternal Data Information Final ABRAHAM: 06/14/24 Gestational age: 39 Vaginal Delivery Maternal Presentation Maternal Presentation: Active Labor Type of Induction: Amniotomy Vaginal Delivery Information Procedure Performed: Spontaneous Vaginal Delivery Surgeon/Practitioner: oRsa Carvajal Date of Procedure: 06/07/24 Pre-Procedure Diagnosis: labor Post-Procedure Diagnosis: Type of anesthesia: None Estimated Blood Loss: 150 cc Time of Delivery: 10:50 Findings Description of procedure: Presented in active labor. AROM at 4 cm for clear fluid. Rapidly progressed to complete and delivered over an intact perineum. Nuchal cord x1 easily reduced. The anterior and posterior shoulder delivered without difficulty. The infant cried upon delivery. The was placed on the maternal abdomen. The cord was clamped and cut at one minute. The placenta delivered with gentle traction. No laceration to repair. All sponge and instrument counts were correct Presentation: Vertex and MJ Amniotic Membrane Rupture Type: Artificial Amniotic Fluid Description: Clear Placental Delivery Description: Spontaneous Placenta Disposition: [facility] Specimen collected: No Cord Vessel Description: 3 Vessels Cord Entanglement: Around neck x 1, loose Nuchal Cord Compression: Without compression Infant A Gender: Female (1 minute): 8 (5 minute): 9 Delayed Cord Clamping: Yes Superintendent Horticulture plant pathologist: No Post Vaginal Deli Medications given after delivery: IV Pitocin and IM Pitocin Episiotomy Description: None Laceration: None Complication Complications: No
[2024-06-07] MEDS: Ibuprofen 600 MG Tablet PO (12:14)
[2024-06-07] MEDS: Benzocaine/Lanolin/Aloe Vera 85 GM Spray 1 SPRAY TOPICAL (13:23)
[2024-06-07] MEDS: Acetaminophen 500 MG Tablet 1000 MG PO (13:23)
[2024-06-08 00:43] VITALS: BP 89/50; PULSE 79; O2SAT 98
[2024-06-08 00:44] VITALS: BP 85/50; BP 90/58; PULSE 63; PULSE 74; RESP 14; TEMP 36.7; O2SAT 97
[2024-06-08 03:47] VITALS: PULSE 63; O2SAT 98
[2024-06-08 03:48] VITALS: BP 101/58; PULSE 64; PULSE 78; RESP 16; TEMP 36.6; O2SAT 99
--- NOTE | 2024-06-08 07:38 | PCM.PN.OB ---
Subjective Subjective Doing well. Ambulating and voiding without difficulty. Mild lochia. Breast feeding. Objective Data Objective Data Vital Signs: Vital Signs Temp Pulse Resp BP Pulse Ox O2 Del Method 98 F 78 16 101/58 L 99 Room Air 06/08/24 03:48 06/08/24 03:48 06/08/24 03:48 06/08/24 03:48 06/08/24 03:48 06/08/24 03:48 Oxygen Delivery Method Room Air Weight: 65.136 kg Body Mass Index (BMI) 24.6 Intake & Output: Intake and Output for Last 24 Hours 06/06/24 06/07/24 06/08/24 23:59 23:59 23:59 Intake Total 792.18 / 792.18 Output Total 500 / 500 Balance 292.18 / 292.18 Lab / Micro Data 06/07/24 06:00 ROS Constitutional Constitutional: Denies headache(s) Cardiovascular Cardiovascular: Denies chest pain or dyspnea Gastrointestinal Gastrointestinal: Denies nausea or vomiting Genitourinary Genitourinary: Denies dysuria Physical Exam Const alert, oriented x3 and no apparent distress General Appearance: cooperative and comfortable Eyes PERRL and EOMs intact bilaterally Resp normal respiratory effort GI soft to palpation and non-tender Uterus Palpation: uterus fundus firm ( below umbilicus) Extremity normal to inspection and full ROM Neuro oriented x3 and CN's II-XII intact bilaterally Psych mental status grossly normal Assessment & Plan (1) (spontaneous vaginal delivery): PLAN: Plan Discharge home
--- NOTE | 2024-06-08 07:38 | DS.PCM_ITS ---
Providers Date of Admission: 06/07/24 Date of Discharge: 06/08/24 Primary Care Physician: Bev Castro NP Reason For Visit: VAGINAL DELIVERY Diagnosis Discharge Diagnosis (1) (spontaneous vaginal delivery): Status: Acute Code(s): O80 - Encounter for full-term uncomplicated delivery Plan Discharge home Medications at Discharge Home Medications ferrous sulfate 325 mg (65 mg iron) tablet (Feosol) 325 mg PO DAILY anemia 06/07/24 vit no.95-ferrous fumarate 28 mg-folic acid 800 mcg tablet () 1 tab PO DAILY 06/07/24 Hospital Course Operations None Procedures None Summary of Care Provided Minutes Spent on Discharge: 21 Hospital Course: Admitted in active labor. Quick with uncomplicated course. Physical Exam Const alert and no apparent distress Narrative: Fundus firm, below umbilicus. Weight / BMI Weight Weight: 65.136 kg Body Mass Index (BMI) 24.6 ABG / Lab / Microbiology Data 06/07/24 06:00 D/C Instructions May resume sexual activity in: 6 weeks DC O2, CPAP, BIPAP Needs Home O2 Discharge instructions: No Please Follow Up With: Nadya Chowdhury MD When: Follow up with our office in 1-2 and 6 weeks or as needed. [phone] Meaningful Use Info Meaningful Use Meaningful Use Diagnoses (Choose all that apply): None applicable Ischemic Stroke Statin Dosing Therapy Reference: STATIN DOSE THERAPY REFERENCE: * Patients > 75 years receive moderate or high dose statin therapy. * Patients 75 years or YOUNGER should receive HIGH intensity statin dose unless contraindicated. You will be required to document reason for non-treatment if statin daily dose does not meet guidelines. HIGH DOSE STATIN THERAPY DAILY Atorvastatin > than or = to 40 mg Rosuvastatin > than or = to 20 mg Amlodipine + Atorvastatin > than or = to 2.5/40 mg Ezetimibe + Simvastatin 10/80 mg Simvastatin 80mg Discharge Plan Admission Admit Date/Time: 06/07/24 05:40 Primary Reason for Your Visit: labor Attending Provider: Rosa Carvajal Primary Care Provider: Bev Castro NP Discharge Orders/Prescriptions Prescriptions: Continued PNV cmb#95-ferrous fumarate-FA [] 28 mg iron- 800 mcg tablet 1 tab PO DAILY ferrous sulfate [Feosol] 325 mg (65 mg iron) tablet 325 mg PO DAILY Referrals / Follow Up: Bev Castro PADDLE DYEING MACHINE OPERATOR, PADDLE DYEING MACHINE OPERATOR-C [Primary Care Provider] - Disposition Disposition (needs filled in before D/C Order can be placed): Home, Self Care
[2024-06-08 09:19] VITALS: BP 102/66; PULSE 80
[2024-06-08 09:20] VITALS: BP 102/66; RESP 16; TEMP 36.5; O2SAT 100
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
--- NOTE | 2024-06-13 09:48 | NURSING ---
Follow up phone call, patient did not answer, LVM.
== END 2024-06-08 12:25 | disposition home or self-care (01) | DRG 560 ==
LOC: WPOUT 05:41 → WP 05:41
PROVIDERS: Admitting Provider Obstetrics & Gynecology; PCP Nurse Practitioner Primary Care; Referring Provider Obstetrics & Gynecology; Visit Provider Obstetrics & Gynecology
DX: O62.3 Precipitate labor (principal); Z37.0 Single live birth; O69.81X0 Labor and delivery complicated by cord around neck, without compression, not applicable or unspecified; Z3A.39 39 weeks gestation of pregnancy; Z87.59 Personal history of other complications of pregnancy, childbirth and the puerperium
CPT/HCPCS: 59025; 59050; 85025; 86780; 86850; 86900; 86901; 99221; G0378